=== PATIENT | male | born 1970 | race Caucasian/White ===

== ENCOUNTER 2017-04-02 19:02 | Emergency (ER) | payer SELFPAY ==
[~2017-04-02] VITALS: Ht 180.3 cm; Wt 73.4 kg
[2017-04-02 19:04] VITALS: BP 162/104
[2017-04-03] MEDS ORDERED: CLON2TAB2 PO (11:20)
== END 2017-04-02 21:52 | disposition left against medical advice (07) ==
LOC: ED 21:49
DX: M79.672 Pain in left foot (principal); Z53.21 Procedure and treatment not carried out due to patient leaving prior to being seen by health care provider

== ENCOUNTER 2017-04-03 11:09 | Inpatient (IN) | payer MEDICARE, MEDICAID ==
[~2017-04-03] VITALS: Ht 180.3 cm; Wt 72.5 kg
[2017-04-03] MEDS ORDERED: CLON2TAB2 PO (11:20)
[2017-04-03] MEDS ORDERED: AMPICILLIN/SULBACTAM 3 GM in SODIUM CHLORIDE 0.9% 100 ML IV ONE (11:30)
[2017-04-03] MEDS ORDERED: SODIUM CHLORIDE FLUSH 10ML SYR IVF ONE (11:30)
[2017-04-03] MEDS ORDERED: SODIUM CHLORIDE 0.9% 1,000ML IVBOLUS ONE (11:30)
[2017-04-03 12:06] LABS: MEAN CORPUSCULAR HEMOGLOBIN 30.4 pg (27.5-34.5); MEAN CORPUSCULAR HGB CONC 34.5 g/dL (33.2-36.2); MEAN CORPUSCULAR VOLUME 88.1 fL (81-97); MEAN PLATELET VOLUME 8.5 fL (7.4-10.4); PLATELET COUNT 258 x10^3/uL (130-400); RED BLOOD COUNT 4.88 x10^6/uL (4.38-5.82); RED CELL DISTRIBUTION WIDTH 13.2 % (9.4-14.8)
[2017-04-03 12:15] LABS: ALBUMIN 3.1 g/dL (3.4-5.0); ANION GAP 10 mmol/L (5-15); CALCIUM 8.9 mg/dL (8.5-10.1); CHLORIDE 97 mmol/L (98-107)
[2017-04-03 12:19] LABS: ALANINE AMINOTRANSFERASE 16 U/L (12-78); ALKALINE PHOSPHATASE 75 U/L (45-117); BILIRUBIN,TOTAL 0.8 mg/dL (0.2-1.0); CREATININE 0.98 mg/dL (0.7-1.3); TOTAL PROTEIN 7.7 g/dL (6.4-8.2)
[2017-04-03] MEDS ORDERED: KETOROLAC 30 MG/1 ML ONE (12:21)
[2017-04-03] MEDS ORDERED: VANCOMYCIN 1,400 MG in SODIUM CHLORIDE 0.9% 250 ML IV ONE (12:30)
[2017-04-03] MEDS ORDERED: POTASSIUM CHLORIDE 20 MEQ TAB.ER.PRT PO ONE ×2 (12:30→15:00)
[2017-04-03] MEDS ORDERED: VANCOMYCIN PER PHARMACY IV ONE (12:30)
[2017-04-03] MEDS ORDERED: KETOROLAC 30 MG/1 ML IVPush ONE (12:30)
[2017-04-03] MEDS ORDERED: SODIUM CHLORIDE 0.9%, 500ML IVBOLUS ONE (12:30)
[2017-04-03 12:53] LABS: BASOPHILS # (AUTO) 0.09 x10^3/uL (0-0.1); BASOPHILS % (AUTO) 1 % (0-1); EOSINOPHILS # (AUTO) 0.46 x10^3/uL (0-0.4); EOSINOPHILS % (AUTO) 2 % (1-7); LYMPHOCYTES # (AUTO) 0.66 x10^3/uL (1-3.4); LYMPHOCYTES % (AUTO) 4 % (22-44); MD SCAN; MONOCYTES # (AUTO) 0.96 x10^3/uL (0.2-0.8); MONOCYTES % (AUTO) 5 % (2-9); NEUTROPHILS # (AUTO) 16.72 x10^3/uL (1.8-6.8); NEUTROPHILS % (AUTO) 89 % (42-75)
[2017-04-03] MEDS: MORPHINE SULFATE 4 MG/ML, 1ML IVPush PRN ×3 (14:54→23:19)
[2017-04-03] MEDS ORDERED: PHARMACOKINETIC MONITORING MC PRN (15:00)
[2017-04-03] MEDS ORDERED: LABETALOL 5MG/ML, 20ML IVPush PRN (15:00)
[2017-04-03] MEDS ORDERED: LORazepam 1MG TABLET PO PRN (15:00)
[2017-04-03] MEDS ORDERED: ONDANSETRON 2MG/ML, 2ML IVPush PRN (15:00)
[2017-04-03] MEDS ORDERED: TEMAZEPAM 15 MG CAPSULE PO PRN (15:00)
[2017-04-03] MEDS ORDERED: VANCOMYCIN PER PHARMACY MC PRN (15:00)
[2017-04-03] MEDS ORDERED: HYDROcodone/APAP 5/325 TABLET PO PRN (15:00)
[2017-04-03] MEDS ORDERED: DOCUSATE 100 MG CAPSULE PO PRN (15:00)
[2017-04-03] MEDS ORDERED: ONDANSETRON ODT 4 MG PO PRN (15:00)
[2017-04-03] MEDS ORDERED: PHARMACOKINETIC CONSULTATION MC ONE (15:00)
[2017-04-03] MEDS: HEPARIN 5,000 UNITS/ML, 1ML SQ SCH ×2 (15:10→23:09)
[2017-04-03] MEDS: NICOTINE 7 MG/24 HR PATCH.TD24 TD SCH (15:10)
[2017-04-03] MEDS: AMPICILLIN/SULBACTAM 3 GM in SODIUM CHLORIDE 0.9% 100 ML IV SCH (19:14)
[2017-04-03 20:08] VITALS: BP 129/81
[2017-04-03] MEDS: ACETAMINOPHEN 325 MG TABLET PO PRN (23:06)
[2017-04-04] MEDS: AMPICILLIN/SULBACTAM 3 GM in SODIUM CHLORIDE 0.9% 100 ML IV SCH ×4 (00:22→20:04)
[2017-04-04 00:23] LABS: MICROSCOPIC INDICATED
[2017-04-04 00:41] LABS: CULTURE INDICATED? YES
[2017-04-04] MEDS ORDERED: POTASSIUM CHLORIDE 20 MEQ TAB.ER.PRT PO ONE (01:00)
[2017-04-04] MEDS: VANCOMYCIN 1,400 MG in SODIUM CHLORIDE 0.9% 250 ML IV SCH ×2 (01:11→17:28)
[2017-04-04 02:02] VITALS: BP 91/52
[2017-04-04] MEDS: MORPHINE SULFATE 4 MG/ML, 1ML IVPush PRN (05:16)
[2017-04-04 06:19] LABS: CHLORIDE 104 mmol/L (98-107); MEAN CORPUSCULAR HEMOGLOBIN 30.3 pg (27.5-34.5); MEAN CORPUSCULAR HGB CONC 34.7 g/dL (33.2-36.2); MEAN CORPUSCULAR VOLUME 87.5 fL (81-97); MEAN PLATELET VOLUME 8.4 fL (7.4-10.4); PLATELET COUNT 206 x10^3/uL (130-400); RED CELL DISTRIBUTION WIDTH 13.4 % (9.4-14.8)
[2017-04-04 06:31] LABS: ALANINE AMINOTRANSFERASE 13 U/L (12-78); ALBUMIN 2.4 g/dL (3.4-5.0); ALKALINE PHOSPHATASE 61 U/L (45-117); ANION GAP 8 mmol/L (5-15); BILIRUBIN,TOTAL 0.9 mg/dL (0.2-1.0); CALCIUM 7.7 mg/dL (8.5-10.1); CREATININE 0.84 mg/dL (0.7-1.3)
[2017-04-04 06:39] VITALS: BP 108/68
[2017-04-04] MEDS: ACETAMINOPHEN 325 MG TABLET PO PRN (06:59)
[2017-04-04] MEDS: HEPARIN 5,000 UNITS/ML, 1ML SQ SCH ×3 (07:06→19:07)
[2017-04-04] MEDS ORDERED: POTASSIUM CHLORIDE 40 MEQ in SODIUM CHLORIDE 0.9% 500 ML IV ONE (07:30)
[2017-04-04 07:37] LABS: BASOPHILS # (AUTO) 0.03 x10^3/uL (0-0.1); BASOPHILS % (AUTO) 0 % (0-1); EOSINOPHILS # (AUTO) 0.95 x10^3/uL (0-0.4); EOSINOPHILS % (AUTO) 6 % (1-7); LYMPHOCYTES # (AUTO) 0.51 x10^3/uL (1-3.4); LYMPHOCYTES % (AUTO) 3 % (22-44); MD SCAN; MONOCYTES # (AUTO) 0.98 x10^3/uL (0.2-0.8); MONOCYTES % (AUTO) 6 % (2-9); NEUTROPHILS # (AUTO) 12.76 x10^3/uL (1.8-6.8); NEUTROPHILS % (AUTO) 84 % (42-75)
[2017-04-04] MEDS ORDERED: ENOXAPARIN 40 MG/0.4 ML SQ SCH (09:30)
[2017-04-04] MEDS: POTASSIUM CHLORIDE 20 MEQ TAB.ER.PRT PO SCH ×2 (10:30→17:00)
[2017-04-04] MEDS: KETOROLAC 30 MG/1 ML IVPush PRN ×2 (10:30→19:09)
[2017-04-04 12:35] VITALS: BP 102/65
[2017-04-04] MEDS: NICOTINE 7 MG/24 HR PATCH.TD24 TD SCH (15:00)
[2017-04-04] MEDS: LORazepam 2 MG/ML, 1ML IVPush PRN (20:04)
[2017-04-04 20:13] VITALS: BP 105/65
[2017-04-05] MEDS: LORazepam 2 MG/ML, 1ML IVPush PRN (00:05)
[2017-04-05] MEDS: KETOROLAC 30 MG/1 ML IVPush PRN (02:01)
[2017-04-05] MEDS: AMPICILLIN/SULBACTAM 3 GM in SODIUM CHLORIDE 0.9% 100 ML IV SCH (02:17)
[2017-04-05 02:32] VITALS: BP 128/76
== END 2017-04-05 03:00 | disposition left against medical advice (07) | DRG 872 ==
LOC: ED 12:19 → EDIP 12:24 → 4NOR 13:32
PROVIDERS: ADMIT Hospitalist; ATTEND Hospitalist
DX: A41.9 Sepsis, unspecified organism (principal); E87.1 Hypo-osmolality and hyponatremia; L03.116 Cellulitis of left lower limb; E87.6 Hypokalemia; F12.90 Cannabis use, unspecified, uncomplicated; F17.210 Nicotine dependence, cigarettes, uncomplicated; F31.9 Bipolar disorder, unspecified; F41.0 Panic disorder [episodic paroxysmal anxiety]; S91.332A Puncture wound without foreign body, left foot, initial encounter; R73.9 Hyperglycemia, unspecified; R73.02 Impaired glucose tolerance (oral); Z87.442 Personal history of urinary calculi; X58.XXXA Exposure to other specified factors, initial encounter; Y93.89 Activity, other specified; Y92.89 Other specified places as the place of occurrence of the external cause; Y99.8 Other external cause status
CPT/HCPCS: 36415; 80053; 81001; 83605; 83735; 85025; 87040; 87086; J0295; J1644; J1885; J3370; J3480; J2060; J7030; J7040; J7050